=== PATIENT | male | born 1970 | race Asian ===

== ENCOUNTER 2017-06-06 05:02 | Inpatient (IN) | payer OTHER ==
[~2017-06-06] VITALS: Ht 175.3 cm; Wt 93.4 kg
[2017-06-06 07:30] VITALS: BP 108/70
--- NOTE | 2017-06-06 07:30 | NUR ---
MS 2 RN ADMITTING NOTES DIRECT ADMIT FROM [facility] WITH DX OF NON INFECTIOUS SYSTEMIC INFLAMMATORY RESPONSE (DARIOISCH-BABITA).PT IS ALERT AND ORIENTED X4.VERBALLY RESPONSIVE.SKIN INTACT.AMBULATES AD DELANEY.DENIES ANY PAIN OR DISTRESS.ATE 100% BREAKFAST.CALL LIGHT PLACED WITHIN REACH.
[2017-06-06 09:46] VITALS: BP 108/70
[2017-06-06] MEDS ORDERED: COMPLERA (10:38)
[2017-06-06] MEDS ORDERED: ERGO500047 PO (10:38)
[2017-06-06] MEDS ORDERED: ICOS1CAP PO (10:38)
[2017-06-06] MEDS ORDERED: DOXY100C2 PO (10:38)
[2017-06-06] MEDS ORDERED: METO-306 PO (10:38)
[2017-06-06] MEDS ORDERED: ATOR20TA PO (10:38)
[2017-06-06] MEDS ORDERED: ACETAMINOPHEN 325 MG TABLET PO PRN (12:00)
[2017-06-06] MEDS ORDERED: Potassium Chloride 20 MEQ in IV NS 0.9% 1,000 ML IV PRN (12:00)
[2017-06-06] MEDS ORDERED: MAG HYDROX/AL HYDROX/SIMETH 30 ML UDC PO PRN (12:00)
[2017-06-06] MEDS ORDERED: ONDANSETRON HCL/PF 4 MG/2 ML VIAL IVP PRN (12:00)
[2017-06-06] MEDS ORDERED: ZOLPIDEM TARTRATE 5 MG TABLET PO PRN (12:00)
[2017-06-06] MEDS ORDERED: Z GUARD REMEDY 2 OZ OINT TP PRN (12:00)
[2017-06-06] MEDS ORDERED: MAGNESIUM HYDROXIDE 30 ML UDC PO PRN (12:00)
[2017-06-06 16:17] VITALS: BP 116/67
--- NOTE | 2017-06-06 16:45 | NUR ---
DISCHARGE INSTRUCTIONS,MED AND HEALTH TEACHING GIVEN TO THE PT.IV H/L REMOVED TO LEFT HAND WITHOUT BLEEDING NOTED WITH STABLE V/S.COOPER PAIN OR DISTRESS.ACCOMPANIED HOME BY HIS PARTNER.
--- NOTE | 2017-06-06 16:47 | NUR ---
AWAITING FOR PT'S PARTNER TO PICK HIM UP TO BE DISCHARGE HOME.
--- NOTE | 2017-06-06 18:14 | NUR ---
DISCHARGED PT HOME VIA CAR WITH STABLE V/S ACCOMPANIED BY HIS ROOMATE.
== END 2017-06-06 18:14 | disposition home or self-care (01) | DRG 916 ==
LOC: MEDSG2 07:12
PROVIDERS: ADMIT Nurse Practitioner Acute Care; ATTEND Nurse Practitioner Acute Care
DX: T88.6XXA Anaphylactic reaction due to adverse effect of correct drug or medicament properly administered, initial encounter (principal); A64 Unspecified sexually transmitted disease; E78.5 Hyperlipidemia, unspecified; I10 Essential (primary) hypertension; T36.3X5A Adverse effect of macrolides, initial encounter; Y84.9 Medical procedure, unspecified as the cause of abnormal reaction of the patient, or of later complication, without mention of misadventure at the time of the procedure; Y92.009 Unspecified place in unspecified non-institutional (private) residence as the place of occurrence of the external cause
CPT/HCPCS: 87081-TC; J3480; J7030; Z7610